=== PATIENT | female | born 1955 | race Hispanic/Latino ===

== ENCOUNTER 2020-05-04 11:52 | Observation (INO) | payer MEDICARE ==
[~2020-05-04] VITALS: Ht 152.4 cm; Wt 72.1 kg
[2020-05-04] MEDS ORDERED: SIMVASTATIN20 MG PO (12:17)
[2020-05-04] MEDS ORDERED: METFORMIN HCL500 MG PO (12:17)
[2020-05-04] MEDS ORDERED: LANTUS SOL100 UNIT/1 SUB-Q (12:17)
[2020-05-04] MEDS ORDERED: XARELTO10 MG PO (12:18)
[2020-05-04] MEDS ORDERED: PINDOLOL5 MG PO (12:22)
--- NOTE | 2020-05-04 13:49 | EKG ---
[facility] [address] [place], [place] [address] Signed Normal sinus rhythm Normal ECG No previous ECGs available Confirmed by KORIN MIRZA MD ([id number]) on 05/04/2020 1:48:57 PM Electronically Signed By: KORIN MIRZA MD 05/04/20 1349 PATIENT NAME: DEZ LEON Electrocardiogram DATE OF : 51 PHYSICIAN: KORIN MIRZA MD REPORT #: [id number] REPORT IS CONFIDENTIAL AND NOT TO BE RELEASED WITHOUT AUTHORIZATION
--- NOTE | 2020-05-04 15:50 | NUR ---
PATIENT BROUGHT TO ROOM AT THIS TIME. PATIENT BEING ADMITTED BY NEFTALI OSMAN.
[2020-05-04] MEDS ORDERED: HUMALOG100 UNIT/2 SUB-Q (16:08)
[2020-05-04] MEDS ORDERED: BYDUREON P2 MG/0.65 SUB-Q (16:09)
[2020-05-04] MEDS ORDERED: PRADAXA150 MG PO (16:10)
--- NOTE | 2020-05-04 16:10 | NUR ---
PATIENT ADMITTED TO MED SURG. PATIENT DENIES PAIN OR NAUSEA AT THIS TIME, IS ABLE TO MOVE SELF OVER FROM GURNEY TO BED. PATIENT HAS ICE CHIPS AND ICE WATER ON TABLE. PATIENT UP TO BATHROOM TO VOID. PATIENT IS ONE PERSON ASSIST AND IS MOSTLY STEADY ON HER FEET. PHARMACIST IN TO TALK TO PATIENT.
--- NOTE | 2020-05-04 16:15 | NUR ---
PATIENT NAUSEATED AND SMALL AMOUNT OF CLEAR EMESIS AFTER AMBULATING TO BATHROOM.
[2020-05-04] MEDS ORDERED: XARELTO20 MG PO (16:24)
--- NOTE | 2020-05-04 16:56 | NUR ---
CALLED PATIENTS DOCTOR FOR RECORDS. DR. BJ DOYLE AT [facility] PHONE [phone]. HER NAME IS NOT IN [employer] SO I CANNOT UPDATE HER DEMOGRAPHIC SHEET.
--- NOTE | 2020-05-04 17:10 | NUR ---
THIS RN TO ROOM FOR ASSESSMENT pt assessment complete, VSS. pt ordered Metoprolol IV since she was HTN in ER. pt currently 108/88, Dr Harris DC this order now. pt not given med. pt given call light and oriented to room. pt denies pain, nausea, and dizziness at this time. pt in bed, table and call light within reach.
--- NOTE | 2020-05-04 19:25 | NUR ---
RECEIVED REPORT FROM DAY SHIFT RN. PATIENT IS RESTING IN BED EATING DINNER. PATIENT DENIES ANY NEEDS. CALL LIGHT IN REACH.
--- NOTE | 2020-05-04 20:20 | NUR ---
IN WITH RN TO ASST IN ORTHOSTATIC VITALS, PT DENIES NEEDING TO VOID AT THIS TIME, ICE CHIPS AND ICE WATER GIVEN
--- NOTE | 2020-05-04 20:20 | NUR ---
PATIENT ASSESMENT COMPLETED. PATIENTS VITALS TAKEN AND RECORDED. INTAKE AND OUPUT COMPLETED. ORTHOSTATICS COMPLETED AND RECORDED, MINIMAL CHANGE NOTED. PATIENT REPORTED NO DIZZINESS DURING ORTHOSTATICS. PATIENT HOWEVER REPORTED NAUSEA DURING ORTHOSTATICS. NAUSEA SUBSIDED WHEN PATIENT RETURNED TO BED. PATIENT DENIES ANY PAIN OR THE NEED FOR NAUSEA MEDICATION. PATIENTS BS CHECKED AND IT IS WNL. PATIENTS IV INFUSING PER ORDER. FRESH ICE WATER PROVIDED. PATIENT WAS ABLE TO EAT 75% OF HER CLEAR TRAY. PATIENT IS ON RA. PATIENT DENIES ANY FURTHER NEEDS. CALL LIGHT IN REACH.
--- NOTE | 2020-05-04 22:17 | NUR ---
PATIENT ASSISTED TO THE RESTROOM A SBA BY [employer]. PATIENT BECAME NASUEAOUS AND HAD EMESIS WHILE IN RESTROOM. PATIENT GIVEN PRN NAUSEA MEDICATION PER ORDER. PATIENT WAS ABLE TO VOID. PATIENT IS BACK IN BED RESTING AND NAUSEA HAS SUBSIDED. PATIENTS SON IS PRESENT IN THE ROOM. ALL QUESTIONS ANSWERED. NO FURTHER NEEDS NOTED. CALL LIGHT IN REACH. LINEN PROVIDED FOR SON.
--- NOTE | 2020-05-04 22:17 | NUR ---
CALL LIGHT ON, IN TO ASST PT TO THE TOILET SBA WITH IV POLE, PT BECAME NAUSEUS AND HAD EMESIS, RN IN TO PROVIDE MED, PT ON TOILET FOR A LITTLE BIT, THEN BACK TO BED
--- NOTE | 2020-05-05 02:21 | NUR ---
PATIENT ASSISTED TO THE BSC. PATIENT WAS ABLE TO VOID. PATIENT IS BACK IN BED RESTING. PATIENT REPORTED MINIMAL DIZZINESS AND SHE STATED THE NAUSEA WAS "HARDLY NOTHING". PATIENTS VITALS TAKEN AND RECORDED. INTAKE AND OUTPUT RECORDED. ICE WATER REFILLED. SON IS ASLEEP ON THE COUCH. NO FURTHER NEEDS NOTED. CALL LIGHT IN REACH.
--- NOTE | 2020-05-05 02:22 | NUR ---
IN TO GET VITALS, PT UP TO THE BSC, SBA PIVOT, PT NOW BACK IN BED, NO FURTHER NEED AT THIS TIME
--- NOTE | 2020-05-05 04:24 | NUR ---
PATIENT IS RESTING IN BED WITH EYES CLOSED, RR 18. CALL LIGHT IN REACH.
--- NOTE | 2020-05-05 05:04 | NUR ---
PATIENT RESTED WELL THROUGHOUT THE SHIFT. PATIENT IS ON A CLEARS/ADA DIET, AND TOLERATING IT WELL. NAUSEA AND DIZZINESS ARE ONLY NOTED WITH MOVEMENT. PATIENT IS ON RA. ORTHOSTAICS BID. IV INFUSING PER ORDER. SBA TO BSC. PATIENT RECEIVED PRN NAUSEA MEDICATION X1. NO PAIN NOTED. [id number].
--- NOTE | 2020-05-05 06:31 | NUR ---
PATIENTS VITALS TAKEN AND RECORDED. INTAKE AND OUPUT RECORDED. PATIENT DENIES ANY NAUSEA OR DIZZINESS. PATIENT DENIES ANY NEEDS. FRESH ICE ATER PROVIDED. IV INFUSING PER ORDER. SON ASLEEP ON COUCH. NO FURTHER NEEDS NOTED. CALL LIGHT IN REACH.
--- NOTE | 2020-05-05 07:32 | NUR ---
this rn received report from katie bob. pt appears to be resting at this time with respirations noted and son in room.
--- NOTE | 2020-05-05 08:45 | NUR ---
THIS RN IN PTS ROOM TO DO PTS ASSESSMENT AND GIVE MORNING MEDS. PTS BLOOD SUGAR DID NOT QUALIFY HER FOR INSULIN REPLACEMENT THIS AM. PT STATES THAT WHEN NAYAN CROSS GOT HER UP THE CHAIR SHE HAD NO DIZZYNESS OR NAUSEA THIS AM. PT ALSO NOTED THAT SHE TAKES A MED AT HOME FOR HER HR- PT EDUCATED ABOUT MED AND WHY SHE WASN'T STARTED ON IT ORGINALLY
--- NOTE | 2020-05-05 09:15 | NUR ---
GOT PATIENT UP TO THE CHAIR SO SHE COULD DRINK HER CLEARS. BED LINENS CHANGED. SHE ALSO WASHED HER FACE. SHE SAID SHE WILL BRUSH HER TEETH LATER.
--- NOTE | 2020-05-05 09:30 | NUR ---
SPOKE WITH PATIENT AND SON IN ROOM. PATIENT UP IN CHAIR. SHE SAYS DIZZINESS IS MUCH IMPROVED TODAY. SHE PLANS TO DISCHARGE HOME WITH FAMILY. SHE FEELS SAFE WITH PLAN. LIVES IN [place], ADULT DAUGHTER FROM [place] IS STAYING WITH HER AND HER OTHER ADULT KIDS FROM [place] ARE THERE TO HELP ALSO. SHE HAS PCP THERE AND USES LOCAL PHARMACY. SHE HAS NO QUESTIONS AT THIS TIME. NO BARRIERS KNOWN TO DISCHARGE HOME WITH FAMILY FOUND.
[2020-05-05] MEDS ORDERED: XARELTO20 MG PO (09:43)
[2020-05-05] MEDS ORDERED: METFORMIN HCL500 M3 PO (09:44)
--- NOTE | 2020-05-05 09:54 | NUR ---
PATIENT ADVANCED TO ADA DIET, GIVEN MENU AND PHONE TO ORDER.
--- NOTE | 2020-05-05 11:09 | NUR ---
PATIENT SAID IF SHE DOESN'T GO HOME TODAY SHE WILL TAKE A SHOWER.
--- NOTE | 2020-05-05 11:30 | NUR ---
this rn in pts room to encourage pt to walk. pt able to do 1 lap around the unit and toelrated well without getting nausea or dizzy. pt back to room and up to chair at this time
--- NOTE | 2020-05-05 12:07 | NUR ---
PT ALERT, ORIENTED AND SUPPORTED BY HER SON YENNY. PAIN NOT AN ISSUE AT THE MOMENT, PLEASANT,PT FEELS INFORMED AND MENTIONED THAT THIS IS SOMETHING NEW FOR HER. GAVE BLESSING AND G.POST. WILL FOLLOW NEEDED
[2020-05-05] MEDS ORDERED: ONDANSETRON ODT4 MG PO (12:58)
== END 2020-05-05 14:45 | disposition home or self-care (01) ==
LOC: ED 11:52 → MS 11:54
PROVIDERS: ADMIT Internal Medicine; ATTEND Internal Medicine
DX: I67.1 Cerebral aneurysm, nonruptured (principal); I48.91 Unspecified atrial fibrillation; E11.9 Type 2 diabetes mellitus without complications; I10 Essential (primary) hypertension; E78.5 Hyperlipidemia, unspecified; Z79.4 Long term (current) use of insulin; Z20.822 Contact with and (suspected) exposure to COVID-19; Z79.01 Long term (current) use of anticoagulants
CPT/HCPCS: 70450; 70496; 70498; 80053; 81001; 83690; 84484; 85025; 93005; 93010; C9113; C9803; J1790; J1815; J2405; J7040; J7121; Q9967; U0003